=== PATIENT | male | born 1950 | race Caucasian/White ===

== ENCOUNTER 2018-08-27 09:30 | Inpatient (IN) | payer OTHER ==
[~2018-08-27] VITALS: Ht 185.4 cm; Wt 95.8 kg
--- NOTE | 2018-08-27 09:36 | ERD ---
ER Documentation Chief Complaint Chief Complaint HPI This is a 67-year-old male presents for an episode of syncope today while at [facility]. Patient states that he got up, immediately felt dizzy, and had a presyncopal episode. He was conscious after, he did not have any witnessed seizure episode. He has no chest pain or shortness of breath. States in the past he has been diagnosed with a collapsed lung, and "not taking enough breath" and was advised to walk consistently. He has no reported history of arrhythmia or coronary disease. ROS All systems reviewed and are negative except as per history of present illness. Medications Home Meds Reported Medications Risperidone* (Risperidone*) 1 Mg Tablet, 1 MG PO QHS, TAB MAY TAKE AN ADDITIONAL .5 TAB IF IRRITABLE 08/27/18 Tamsulosin Hcl* (Flomax*) 0.4 Mg Cap.er.24h, 0.4 MG PO DAILY, CAP 08/27/18 Ranitidine Hcl* (Ranitidine Hcl*) 300 Mg Tablet, 300 MG PO HS, #30 TAB 08/27/18 Omeprazole* (Omeprazole*) 40 Mg Capsule.dr, 40 MG PO DAILY, #30 CAP 08/27/18 Loratadine* (Claritin*) 10 Mg Tablet, 10 MG PO DAILY, TAB 08/27/18 Simvastatin* (Zocor*) 20 Mg Tablet, 20 MG PO QHS, #30 TAB 08/27/18 Allergies Allergies: Coded Allergies: No Known Allergy (Unverified , 08/27/18) Physical Exam Vitals Vital Signs Date Temp Pulse Resp B/P (MAP) Pulse Ox O2 O2 Flow FiO2 Time Delivery Rate 08/27/18 60 17 130/75 96 Room Air 2.0 12:44 (93) Nasal Cannula 08/27/18 98.6 57 18 118/74 100 09:46 (89) Physical Exam Const: No acute distress Head: Superficial abrasion to forehead, otherwise no ecchymosis, no lace rations, no raccoon eyes, no chung sign Eyes: Normal Conjunctiva ENT: Normal External Ears, Nose and Mouth. Neck: Full range of motion. No meningismus. Resp: Clear to auscultation bilaterally Cardio: Regular rate and rhythm, no murmurs Abd: Soft, non tender, non distended. Normal bowel sounds Skin: No petechiae or rashes Back: No midline or flank tenderness Ext: No cyanosis, or edema Neur: Awake and alert Psych: Normal Mood and Affect Result Diagram: 08/27/18 1015 08/27/18 1015 Results 24 hrs Laboratory Tests Test 08/27/18 10:15 White Blood Count 9.2 10^3/ul Red Blood Count 4.69 10^6/ul Hemoglobin 13.8 g/dl Hematocrit 42.2 % Mean Corpuscular Volume 90.0 fl Mean Corpuscular Hemoglobin 29.4 pg Mean Corpuscular Hemoglobin Concent 32.7 g/dl Red Cell Distribution Width 12.3 % Platelet Count 340 10^3/UL Mean Platelet Volume 9.6 fl Immature Granulocytes % 0.300 % Neutrophils % 71.4 % Lymphocytes % 17.5 % Monocytes % 9.3 % Eosinophils % 0.8 % Basophils % 0.7 % Nucleated Red Blood Cells % 0.0 /100WBC Immature Granulocytes # 0.030 10^3/ul Neutrophils # 6.6 10^3/ul Lymphocytes # 1.6 10^3/ul Monocytes # 0.9 10^3/ul Eosinophils # 0.1 10^3/ul Basophils # 0.1 10^3/ul Nucleated Red Blood Cells # 0.0 10^3/ul Prothrombin Time 12.8 Sec Prothrombin Time Ratio 1.0 INR International Normalized Ratio 0.95 Sodium Level 140 mmol/L Potassium Level 4.0 mmol/L Chloride Level 102 mmol/L Carbon Dioxide Level 28 mmol/L Anion Gap 10 Blood Urea Nitrogen 22 mg/dl Creatinine 1.30 mg/dl Est Glomerular Filtrat Rate mL/min 55 mL/min Glucose Level 109 mg/dl Calcium Level 9.2 mg/dl Total Bilirubin 0.3 mg/dl Direct Bilirubin 0.00 mg/dl Indirect Bilirubin 0.3 mg/dl Aspartate Amino Transf (AST/SGOT) 27 IU/L Alanine Aminotransferase (ALT/SGPT) 14 IU/L Alkaline Phosphatase 86 IU/L Troponin I < 0.012 ng/ml Total Protein 7.1 g/dl Albumin 3.9 g/dl Globulin 3.20 g/dl Albumin/Globulin Ratio 1.21 Current Medications Medications Dose Sig/Lynda Start Time Status Last (Trade) Ordered Route PRN Stop Time Admin Dose Reason Admin Sodium 1,000 ml @ Q1H ONCE 08/27/18 DC 1/20/19 Chloride 1,000 mls/hr IV 11:30 11:52 08/27/18 12:29 Iodixanol 100 ml STK-MED 08/27/18 DC (Visipaque ONCE .ROUTE 11:47 Locm) 08/27/18 11:48 Sodium 100 ml @ ud STK-MED 08/27/18 DC Chloride ONCE .ROUTE 11:47 08/27/18 11:48 Ketorolac 15 mg ONCE STAT 08/27/18 DC 08/27/18 Tromethamine IV 12:15 12:36 (Toradol) 08/27/18 12:16 Procedures/MDM This is a 67-year-old male who presents for evaluation of syncopal episode. He has been overall fatigued, and he has had exertional shortness of breath, additionally had a desat 84% on room air in the ED. His cardiac workup was unremarkable, he had a CT brain which is negative for intracranial findings, he had a CT angiogram to evaluate for pulmonary embolism this was also negative. Emmanuel salazar patient's continued oxygen requirement, will plan for admission to observation. Patient will be admitted to panel team. EKG: Rate/Rhythm: Normal Sinus Rhythm QRS, ST, T-waves: No changes consistent w/ acute ischemia Impression: No evidence of ischemia or arrhythmia Departure Diagnosis: Primary Impression: Syncope Syncope type: unspecified Qualified Codes: R55 - Syncope and collapse Additional Impressions: Head trauma Encounter type: initial encounter Qualified Codes: S09.90XA - Unspecified injury of head, initial encounter Hypoxia Condition: Stable JCARLOS CEDENO MD Aug 27, 2018 09:36
[2018-08-27] MEDS ORDERED: SIMV20TA PO (10:56)
[2018-08-27] MEDS ORDERED: OMEP40CA6 PO (10:57)
[2018-08-27] MEDS ORDERED: LORA-186 PO (10:57)
[2018-08-27] MEDS ORDERED: RANI300T PO (10:57)
[2018-08-27] MEDS ORDERED: TAMS-14 PO (10:58)
[2018-08-27] MEDS ORDERED: RISP1TAB3 PO (11:01)
[2018-08-27] MEDS ORDERED: SOD CHLORIDE 0.9% 1,000 ML IV ONE (11:30)
[2018-08-27] MEDS ORDERED: IODIXANOL LOCM 100 ML BTL ONE (11:47)
[2018-08-27] MEDS ORDERED: SOD CHLORIDE 0.9% 100 ML ONE (11:47)
--- NOTE | 2018-08-27 12:05 | NUR ---
Procedure Ordered: CTA CHEST ANGIO Reason for Exam Today: SOB Previous Exams: Allergies: Current Medications Taken: Glucophage ( ) Metformin ( ) Previous reaction to contrast media: Yes ( ) No ( X) : Yes ( ) No ( )X Asthma: Yes ( ) No ( X) Diabetes: Yes ( ) No ( X) Myeloma: Yes ( ) No (X ) Heart Disease: Yes ( ) No ( X) Cardiac Disease: Yes ( ) No (X ) Kidney Disease: Yes ( ) No (X ) Vascular Disease: Yes ( ) No (X ) Patient Teaching done: Yes (X ) No ( ) Load Tester Used: Yes ( ) No (X ) Name of Load Tester: Language Used: As part of the test requested by your doctor, contrast media may be injected into your vein while the x-rays are being taken. Occasionally, reactions from IV contrast may occur. The physician and staff of this hospital are trained to treat these reactions. Select the type of Contrast that will be given to patient: Omnipaque 300 ( ) Omnipaque 350 ( ) Visipaque 320 ( X) Cystografin ( ) Gastrographin ( ) Redi-cat ( ) Volumen ( ) Amount of contrast to be given: 90CC IV ( X) PO ( ) Date given: 08/27/18 Lab Values: BUN: 22 Creatinine: 1.30 eGFR: 55 ER MD CEDENO OK WITH LABS Reason why contrast cannot be given: Location of patient pre-procedure: ER BED 9 Location of patient post procedure:ER BED 9 Patient tolerated exam well and returned to unit.
[2018-08-27] MEDS ORDERED: KETOROLAC 15 MG INJ IV STA (12:15)
[2018-08-27 17:42] VITALS: PULSE 66
[2018-08-27 18:14] VITALS: Ht 185.4 cm; Wt 95.8 kg
--- NOTE | 2018-08-27 18:43 | NUR ---
RN NOTES: Admitted patient from ER, awake, alert & verbally responsive, not in distress. Admission care rendered. Paged Dr Martin for admitting & said he will be coming to see patient.
[2018-08-27] MEDS ORDERED: ACETAMINOPHEN 325 MG TAB PO PRN (19:30)
[2018-08-27] MEDS ORDERED: NACL 0.9% 3 ML SYG IV SCH (19:30)
[2018-08-27] MEDS ORDERED: HYDROCODONE/APAP (5/325) TAB PO PRN (19:30)
[2018-08-27] MEDS ORDERED: ZOLPIDEM 5 MG TAB PO PRN (19:30)
[2018-08-27] MEDS ORDERED: ALBUTEROL/IPRATROPIUM (NEB) 3 ML AMP HHN PRN (19:30)
[2018-08-27] MEDS ORDERED: morphine 2 MG INJ IV PRN (19:30)
[2018-08-27] MEDS ORDERED: ONDANSETRON 4 MG INJ IV PRN (19:30)
[2018-08-27] MEDS ORDERED: DOCUSATE SODIUM 100 MG CAP PO PRN (19:30)
--- NOTE | 2018-08-27 19:33 | HP ---
Date/Time of Note Date/Time of Note DATE: 08/27/18 TIME: 19:25 Assessment/Plan VTE Prophylaxis SCD applied (from Nsg): Yes Pharmacological prophylaxis: NA/contraindicated Pharm contraindication: other Lines/Catheters IV Catheter Type (from Nrsg): Saline Lock Assessment/Plan Hospital Course 1. Syncope possibly secondary to dehydration Patient does appear clinically dry and creatinine is elevated CT brain is normal, EKG shows sinus rhythm Patient does become mildly bradycardic but blood pressure has been stable Monitor on telemetry 2D echo and carotid ultrasound 2. Acute versus chronic kidney disease Baseline creatinine unknown IV fluids for possible dehydration 3. Acute respiratory distress Etiology unclear CTA is normal, no wheezing noted on exam DuoNeb as needed Supplemental O2 as needed 4. History of psychiatric disorder-likely schizophrenia Continue Risperdal 5. BPH Continue Flomax Prophylaxis: SCDs Result Diagram: 08/27/18 1015 08/27/18 1015 Results 24hrs Laboratory Tests Test 08/27/18 10:15 White Blood Count 9.2 Red Blood Count 4.69 L Hemoglobin 13.8 L Hematocrit 42.2 Mean Corpuscular Volume 90.0 Mean Corpuscular Hemoglobin 29.4 Mean Corpuscular Hemoglobin Concent 32.7 Red Cell Distribution Width 12.3 Platelet Count 340 Mean Platelet Volume 9.6 Immature Granulocytes % 0.300 Neutrophils % 71.4 Lymphocytes % 17.5 Monocytes % 9.3 Eosinophils % 0.8 Basophils % 0.7 Nucleated Red Blood Cells % 0.0 Immature Granulocytes # 0.030 Neutrophils # 6.6 Lymphocytes # 1.6 Monocytes # 0.9 Eosinophils # 0.1 Basophils # 0.1 Nucleated Red Blood Cells # 0.0 Prothrombin Time 12.8 Prothrombin Time Ratio 1.0 INR International Normalized Ratio 0.95 Sodium Level 140 Potassium Level 4.0 Chloride Level 102 Carbon Dioxide Level 28 Anion Gap 10 Blood Urea Nitrogen 22 H Creatinine 1.30 H Est Glomerular Filtrat Rate mL/min 55 L Glucose Level 109 Calcium Level 9.2 Total Bilirubin 0.3 Direct Bilirubin 0.00 Indirect Bilirubin 0.3 Aspartate Amino Transf (AST/SGOT) 27 Alanine Aminotransferase (ALT/SGPT) 14 Alkaline Phosphatase 86 Troponin I < 0.012 Total Protein 7.1 Albumin 3.9 Globulin 3.20 Albumin/Globulin Ratio 1.21 HPI/ROS Admit Date/Time Admit Date/Time Aug 27, 2018 at 14:44 Hx of Present Illness Patient is a 67-year-old male with a history of BPH, psychiatric disorder as well as history of intermittent syncopal episodes. Patient is a poor historian and does not recall any history of cardiac disorder. Patient presents with complaint of shortness of breath as well as syncopal episode earlier today. In the ER patient did desaturate at room air to 84%, CTA in the ER was negative as well as CT head. EKG showed sinus rhythm the patient denied any chest pain. Patient has no other complaints this time. ROS Constitutional: no complaints, improved Eyes: no complaints ENT: no complaints Respiratory: no complaints Cardiovascular: no complaints Gastrointestinal: no complaints Genitourinary: no complaints Musculoskeletal: no complaints Skin: no complaints Neurologic: no complaints Endocrine: no complaints Lymphatic: no complaints Psychological: no complaints, nl mood/affect Immunologic: no complaints PMH/Family/Social Past Medical History As per HPI Coded Allergies: No Known Allergy (Unverified , 08/27/18) Past Surgical History History of hernia surgeries Family History Significant Family History: no pertinent family hx Social History Alcohol Use: sober Smoking Status: Former smoker Drug Use: none Exam/Review of Systems Vital Signs Vitals Vital Signs Date Temp Pulse Resp B/P (MAP) Pulse Ox O2 O2 Flow FiO2 Time Delivery Rate 08/27/18 66 17:42 08/27/18 97.8 12 118/72 99 Nasal 2.0 16:30 (87) Cannula Exam Constitutional: alert, oriented Respiratory: clear to auscultation Cardiovascular: regular rate and rhythm Gastrointestinal: soft; No distended Musculoskeletal: nl extremities to inspection LISA KOROMA Aug 27, 2018 19:33
[2018-08-27 20:00] VITALS: PULSE 67
[2018-08-27] MEDS ORDERED: morphine 4 MG/ML VIAL IV PRN (20:00)
[2018-08-27 20:01] VITALS: BP 135/72; PULSE 52; RESP 20
[2018-08-27] MEDS: ATORVASTATIN 10 MG TAB PO SCH (20:37)
[2018-08-27] MEDS: RISPERIDONE 1 MG TAB PO SCH (20:37)
[2018-08-27] MEDS: RANITIDINE 150 MG TAB PO SCH (20:37)
[2018-08-27] MEDS ORDERED: NON-FORMULARY/PATIENT OWN MED (Simvastatin* (Zocor*) 20 MG) PO SCH (21:00)
[2018-08-27] MEDS: SOD CHLORIDE 0.9% 1,000 ML IV SCH (21:17)
[2018-08-28] VITALS (12 sets, daily range): BP systolic 121–147; BP diastolic 57–70; PULSE 46–80; RESP 20
[2018-08-28] MEDS ORDERED: GLUCOSE GEL 15 GRAM TUBE BUCCAL PRN (00:30)
[2018-08-28] MEDS ORDERED: DEXTROSE 50% 50 ML SYRINGE IV PRN ×2 (00:30)
[2018-08-28] MEDS ORDERED: GLUCOSE GEL 15 GRAM TUBE PO PRN ×2 (00:30)
[2018-08-28] MEDS ORDERED: GLUCAGON 1 MG INJ IM PRN (00:30)
[2018-08-28] MEDS: ACCU-CHEK XX SCH (02:00)
[2018-08-28] MEDS: PANTOPRAZOLE (EC) 40 MG TAB PO SCH (05:17)
[2018-08-28] MEDS: SOD CHLORIDE 0.9% 1,000 ML IV SCH ×2 (06:31→16:27)
--- NOTE | 2018-08-28 06:45 | NUR ---
EOSS Pt alert and oriented x4. Vital signs stable. Saturating well on room air. Sinus beverly on tele with the lowest of 44. Weak and unsteady when standing. Able to transfer to bedside commode with 1 person moderate assist. Pt passed swallow test. Placed on SCD. No complaints of pain/distress. Pt stable. Pt did complain of numbness only on his left arm from elbow down to hands. Pt also complain of headache on the left side of forhead where he had the abrasion from fall, pt given PRN morphine and ice pack. Fall precautions implemented. Hourly rounding done. Needs attended. Will endorse to AM shift.
[2018-08-28] MEDS: INSULIN ASPART [NOVOLOG] 3 ML PEN SC SCH ×4 (07:55→20:26)
[2018-08-28] MEDS: LORATADINE 10 MG TAB PO SCH (08:49)
[2018-08-28] MEDS: TAMSULOSIN (SR) 0.4 MG CAP PO SCH (08:49)
--- NOTE | 2018-08-28 10:00 | NUR ---
PT evaluation note: S: HPI This is a 67-year-old male presents for an episode of syncope today while at [employer]. Patient states that he got up, immediately felt dizzy, and had a presyncopal episode. He was conscious after, he did not have any witnessed seizure episode. He has no chest pain or shortness of breath. States in the past he has been diagnosed with a collapsed lung, and "not taking enough breath" and was advised to walk consistently. He has no reported history of arrhythmia or coronary disease. O: MD order received for PT consult. Patient agreeable to participate, c/o light headedness and some headache from neck, R side of face and around forehead, ice packs is helping to ease the pain per pt. C/O generalized weakness. PREC: fall prec. PLOF: Patient lives with family in single story house, 3 consecutive steps to the front door, has safety rail. Patient was independent with ADL and ambulatory without AD, pt doesn't own any DME. Family members can assist as needed. CLOF Patient CGA with bed mobility for balance and to lift legs, CGA for safety due to light headedness on transfers and ambulation using FWW, tolerated about 15 feet distance with steady legs but at slow paced. A: Cleared to ambulate with nursing to go restroom using FWW and with assist for balance and safety, JOYCE Bush made aware. Patient can benefit from HHPT and FWW for home use VERSUS no further therapy needed upon DC if goals met prior to DC home - pending progress P: COnt PT and progress as able.
--- NOTE | 2018-08-28 18:03 | PN ---
Date/Time of Note Date/Time of Note DATE: 08/28/18 TIME: 17:58 Assessment/Plan VTE Prophylaxis Risk score (from Ns)>0 risk: 4 SCD applied (from Ns): Yes Pharmacological prophylaxis: NA/contraindicated Pharm contraindication: low risk/ambulating Lines/Catheters IV Catheter Type (from Nrs): Peripheral IV Assessment/Plan Assessment/Plan 1. Syncope possibly secondary to dehydration Patient does appear clinically dry and creatinine is elevated CT brain is normal, EKG shows sinus rhythm Patient does become mildly bradycardic but blood pressure has been stable Monitor on telemetry 2D echo and carotid ultrasound normal. 2. CARL resolved 3. Angina Reports angina with mild-moderate activity at home, resolves with rest Initial troponin negative Patient is due for hernia surgery this Tuesday. Will plan for stress test before discharge. 4. History of psychiatric disorder-likely schizophrenia Continue Risperdal 5. BPH Continue Flomax Prophylaxis: SCDs Result Diagram: 08/28/18 0608 08/28/18 0608 Results 24hrs Laboratory Tests Test 08/27/18 20:33 08/28/18 06:08 08/28/18 07:58 08/28/18 12:15 Bedside Glucose 90 86 105 White Blood Count 6.8 # Red Blood Count 4.37 L Hemoglobin 13.1 L Hematocrit 39.7 L Mean Corpuscular 90.8 Volume Mean Corpuscular 30.0 Hemoglobin Mean Corpuscular 33.0 Hemoglobin Concent Red Cell 12.4 Distribution Width Platelet Count 304 Mean Platelet Volume 9.7 Immature 0.100 Granulocytes % Neutrophils % 57.6 Lymphocytes % 25.6 Monocytes % 12.3 H Eosinophils % 3.7 Basophils % 0.7 Nucleated Red Blood 0.0 Cells % Immature 0.010 Granulocytes # Neutrophils # 3.9 Lymphocytes # 1.7 Monocytes # 0.8 Eosinophils # 0.3 Basophils # 0.1 Nucleated Red Blood 0.0 Cells # Sodium Level 136 Potassium Level 3.9 Chloride Level 101 Carbon Dioxide Level 28 Anion Gap 7 Blood Urea Nitrogen 20 Creatinine 1.10 Est Glomerular > 60 Filtrat Rate mL/min Glucose Level 95 Hemoglobin A1c 5.7 Calcium Level 8.7 Phosphorus Level 4.3 Magnesium Level 1.9 Free Thyroxine Index 2.92 Thyroxine (T4) 8.3 Triiodothyronine 35.2 (T3) Uptake Test 08/28/18 17:33 Bedside Glucose 139 Subjective 24 Hr Interval Summary Free Text/Dictation No acute overnight events. Patient reports profound fatigue since admission which has not resolved. Also reports having a few episodes of pressure-like substernal chest pain which started several months ago, last experienced about a week ago when he was moving furniture. Chest pressure persisted for a few moments at rest before gradually resolving. Exam/Review of Systems Vital Signs Vitals Vital Signs Date Temp Pulse Resp B/P (MAP) Pulse Ox O2 O2 Flow FiO2 Time Delivery Rate 08/28/18 46 16:00 08/28/18 98.0 20 131/63 97 15:37 (85) 08/27/18 Nasal 2.0 16:30 Cannula Intake and Output 08/27/18 08/27/18 08/28/18 1515:00 23:00 07:00 IntakeIntake Total 1000 ml 1692 ml OutputOutput Total 800 ml BalanceBalance 1000 ml 892 ml Exam Gen: Frail appearing elderly man in no acute distress. Eyes: PERRL, no icterus HEENT: Clear oropharynx, moist mucous membranes Neck: No JVD. Card: Regular rate and rhythm, no murmurs. Chest: No chest wall tenderness. Pulm: Clear to auscultation bilaterally Abd: Soft, nontender, nondistended. : L sided inguinal hernia, tender but reducible. Ext: No cyanosis/clubbing/edema. Medications Medications Current Medications Sodium Chloride 1,000 ml @ 100 mls/hr Q10H IV Last administered on 08/28/18at 16:27; Admin Dose 100 MLS/HR; Start 08/27/18 at 19:25 IV Flush (NS 3 ml) 3 ml PER PROTOCOL IV ; Start 08/27/18 at 19:30 Ondansetron HCl (Zofran Inj) 4 mg Q6H PRN IV NAUSEA AND/OR VOMITING; Start 08/27/18 at 19:30 Acetaminophen (Tylenol Tab) 650 mg Q6H PRN PO PAIN LEVEL 1-3 OR FEVER; Start 08/27/18 at 19:30 Acetaminophen/ Hydrocodone Bitart ([place] (5/325)) 1 tab Q6H PRN PO MODERATE PAIN LEVEL 4-6 Last administered on 08/28/18at 14:16; Admin Dose 1 TAB; Start 08/27/18 at 19:30 Docusate Sodium (Colace) 100 mg Q12H PRN PO CONSTIPATION; Start 08/27/18 at 19:30 Zolpidem Tartrate (Ambien) 5 mg QHS PRN PO SLEEP; Start 08/27/18 at 19:30 Albuterol/ Ipratropium (Duoneb) 3 ml Q4H RESP THERAPY PRN HHN SHORTNESS OF BREATH; Start 08/27/18 at 19:30 Loratadine (Claritin) 10 mg DAILY PO Last administered on 08/28/18at 08:49; Admin Dose 10 MG; Start 08/28/18 at 09:00 Ranitidine HCl (Zantac) 300 mg HS PO Last administered on 08/27/18at 20:37; Admin Dose 300 MG; Start 08/27/18 at 21:00 Risperidone (Risperdal) 1 mg QHS PO Last administered on 08/27/18at 20:37; Admin Dose 1 MG; Start 08/27/18 at 21:00 Tamsulosin HCl (Flomax) 0.4 mg DAILY PO Last administered on 08/28/18at 08:49; Admin Dose 0.4 MG; Start 08/28/18 at 09:00 Pantoprazole (Protonix Tab) 40 mg DAILY@06 PO Last administered on 08/28/18at 05:17; Admin Dose 40 MG; Start 08/28/18 at 06:00 Morphine Sulfate (morphine) 2 mg Q4H PRN IV SEVERE PAIN LEVEL 7-10 Last a dministered on 08/28/18at 05:17; Admin Dose 2 MG; Start 08/27/18 at 20:00 Atorvastatin Calcium (Lipitor) 10 mg QHS PO Last administered on 08/27/18at 20:37; Admin Dose 10 MG; Start 08/27/18 at 21:00 Diagnostic Test (Pha) (Accu-Chek) 1 ea 02 XX ; Start 08/28/18 at 02:00 Insulin Aspart (Novolog Insulin Pen) NOVOLOG *MILD* ALGORITHM WITH MEALS BEDTIME SC ; Start 08/28/18 at 07:55 Miscellaneous Information 1 ea NOTE XX ; Start 08/28/18 at 00:30 Glucose (Glutose) 15 gm Q15M PRN PO DECREASED GLUCOSE; Start 08/28/18 at 00:30 Glucose (Glutose) 22.5 gm Q15M PRN PO DECREASED GLUCOSE; Start 08/28/18 at 00:30 Dextrose (D50w Syringe) 25 ml Q15M PRN IV DECREASED GLUCOSE; Start 08/28/18 at 00:30 Dextrose (D50w Syringe) 50 ml Q15M PRN IV DECREASED GLUCOSE; Start 08/28/18 at 00:30 Glucagon (Glucagen) 1 mg Q15M PRN IM DECREASED GLUCOSE; Start 08/28/18 at 00:30 Glucose (Glutose) 15 gm Q15M PRN BUCCAL DECREASED GLUCOSE; Start 08/28/18 at 00:30 DIDI GIL MD Aug 28, 2018 18:03
[2018-08-28] MEDS: RANITIDINE 150 MG TAB PO SCH (20:25)
[2018-08-28] MEDS: RISPERIDONE 1 MG TAB PO SCH (20:25)
[2018-08-28] MEDS: ATORVASTATIN 10 MG TAB PO SCH (20:25)
[2018-08-29] VITALS (12 sets, daily range): BP systolic 120–137; BP diastolic 58–82; PULSE 45–67; RESP 18–20
[2018-08-29] MEDS: SOD CHLORIDE 0.9% 1,000 ML IV SCH ×2 (01:25→08:21)
[2018-08-29] MEDS: ACCU-CHEK XX SCH (02:00)
[2018-08-29] MEDS: PANTOPRAZOLE (EC) 40 MG TAB PO SCH (06:04)
--- NOTE | 2018-08-29 07:27 | NUR ---
PT REMAINS A/OX4 THROUGHOUT THE SHIFT. STILL WITH OCCASIONAL SLURRING OF SPEECH NOTED. PT IS ABLE TO WALK TO THE RESTROOM USING WALKER. HR REMAINS LOW. ALL OTHER VS REMAINS STABLE. KEPT NPO POST MIDNIGHT. WILL ENDORSE TO AM SHIFT FOR CONTINUITY OF CARE
[2018-08-29] MEDS: INSULIN ASPART [NOVOLOG] 3 ML PEN SC SCH ×4 (07:55→20:59)
[2018-08-29] MEDS: LORATADINE 10 MG TAB PO SCH (08:18)
[2018-08-29] MEDS: TAMSULOSIN (SR) 0.4 MG CAP PO SCH (08:18)
--- NOTE | 2018-08-29 08:31 | CONS ---
Date/Time of Note Date/Time of Note DATE: 08/29/18 TIME: 08:26 Assessment/Plan Assessment/Plan Assessment/Plan Preop cardiac evalution Right inuinal hernia Syncope s/p CARL Psych disorder BPH -Will undergo cardiolyte today before surgery tomorrow -No heart block with sinus beverly -Normal EF by echocardiogram -IVF Result Diagram: 08/29/18 0549 08/29/18 0549 Results 24hrs Laboratory Tests Test 08/28/18 12:15 08/28/18 17:33 08/28/18 20:07 08/28/18 20:23 Bedside Glucose 105 139 114 Creatine Kinase 79 Creatine Kinase 2.0 Index Creatinine Kinase MB 1.56 (Mass) Troponin I < 0.012 Test 08/29/18 05:49 08/29/18 08:09 White Blood Count 7.1 Red Blood Count 4.58 L Hemoglobin 13.6 L Hematocrit 41.7 L Mean Corpuscular 91.0 Volume Mean Corpuscular 29.7 Hemoglobin Mean Corpuscular 32.6 Hemoglobin Concent Red Cell 12.2 Distribution Width Platelet Count 322 Mean Platelet Volume 9.9 Immature 0.300 Granulocytes % Neutrophils % 51.0 Lymphocytes % 32.7 Monocytes % 11.3 H Eosinophils % 3.7 Basophils % 1.0 Nucleated Red Blood 0.0 Cells % Immature 0.020 Granulocytes # Neutrophils # 3.6 Lymphocytes # 2.3 Monocytes # 0.8 Eosinophils # 0.3 Basophils # 0.1 Nucleated Red Blood 0.0 Cells # Sodium Level 138 Potassium Level 3.9 Chloride Level 102 Carbon Dioxide Level 31 Anion Gap 5 Blood Urea Nitrogen 19 Creatinine 1.16 Est Glomerular > 60 Filtrat Rate mL/min Glucose Level 94 Calcium Level 8.7 Phosphorus Level 4.1 Magnesium Level 1.9 Bedside Glucose 91 Consultation Date/Type/Reason Admit Date/Time Aug 27, 2018 at 14:44 Hx of Present Illness Patient is a 67-year-old male with a history of BPH, psychiatric disorder as well as history of intermittent syncopal episodes. Patient is a poor historian and does not recall any history of cardiac disorder. Patient presents with complaint of shortness of breath as well as syncopal episode earlier today. In the ER patient did desaturate at room air to 84%, CTA in the ER was negative as well as CT head. EKG showed sinus rhythm the patient denied any chest pain. Patient has no other complaints this time. He has no cardiac history with atypical chest pain that is nonexertional and no asosicated symptoms, sinus beverly but no heart block Past Medical History Medications Current Medications Sodium Chloride 1,000 ml @ 100 mls/hr Q10H IV Last administered on 08/29/18at 08:21; Admin Dose 100 MLS/HR; Start 08/27/18 at 19:25 IV Flush (NS 3 ml) 3 ml PER PROTOCOL IV ; Start 08/27/18 at 19:30 Ondansetron HCl (Zofran Inj) 4 mg Q6H PRN IV NAUSEA AND/OR VOMITING; Start 08/27/18 at 19:30 Acetaminophen (Tylenol Tab) 650 mg Q6H PRN PO PAIN LEVEL 1-3 OR FEVER; Start 08/27/18 at 19:30 Acetaminophen/ Hydrocodone Bitart (Bly (5/325)) 1 tab Q6H PRN PO MODERATE PAIN LEVEL 4-6 Last administered on 08/28/18at 14:16; Admin Dose 1 TAB; Start 08/27/18 at 19:30 Docusate Sodium (Colace) 100 mg Q12H PRN PO CONSTIPATION; Start 08/27/18 at 19:30 Zolpidem Tartrate (Ambien) 5 mg QHS PRN PO SLEEP; Start 08/27/18 at 19:30 Albuterol/ Ipratropium (Duoneb) 3 ml Q4H RESP THERAPY PRN HHN SHORTNESS OF BREATH; Start 08/27/18 at 19:30 Loratadine (Claritin) 10 mg DAILY PO Last administered on 08/29/18at 08:18; Admin Dose 10 MG; Start 08/28/18 at 09:00 Ranitidine HCl (Zantac) 300 mg HS PO Last administered on 08/28/18at 20:25; Admin Dose 300 MG; Start 08/27/18 at 21:00 Risperidone (Risperdal) 1 mg QHS PO Last administered on 08/28/18at 20:25; Admin Dose 1 MG; Start 08/27/18 at 21:00 Tamsulosin HCl (Flomax) 0.4 mg DAILY PO Last administered on 08/29/18at 08:18; Admin Dose 0.4 MG; Start 08/28/18 at 09:00 Pantoprazole (Protonix Tab) 40 mg DAILY@06 PO Last administered on 08/29/18at 06:04; Admin Dose 40 MG; Start 08/28/18 at 06:00 Morphine Sulfate (morphine) 2 mg Q4H PRN IV SEVERE PAIN LEVEL 7-10 Last administered on 08/28/18at 05:17; Admin Dose 2 MG; Start 08/27/18 at 20:00 Atorvastatin Calcium (Lipitor) 10 mg QHS PO Last administered on 08/28/18at 20:25; Admin Dose 10 MG; Start 08/27/18 at 21:00 Diagnostic Test (Pha) (Accu-Chek) 1 ea 02 XX ; Start 08/28/18 at 02:00 Insulin Aspart (Novolog Insulin Pen) NOVOLOG *MILD* ALGORITHM WITH MEALS BEDTIME SC ; Start 08/28/18 at 07:55 Miscellaneous Information 1 ea NOTE XX ; Start 08/28/18 at 00:30 Glucose (Glutose) 15 gm Q15M PRN PO DECREASED GLUCOSE; Start 08/28/18 at 00:30 Glucose (Glutose) 22.5 gm Q15M PRN PO DECREASED GLUCOSE; Start 08/28/18 at 00:30 Dextrose (D50w Syringe) 25 ml Q15M PRN IV DECREASED GLUCOSE; Start 08/28/18 at 00:30 Dextrose (D50w Syringe) 50 ml Q15M PRN IV DECREASED GLUCOSE; Start 08/28/18 at 00:30 Glucagon (Glucagen) 1 mg Q15M PRN IM DECREASED GLUCOSE; Start 08/28/18 at 00:30 Glucose (Glutose) 15 gm Q15M PRN BUCCAL DECREASED GLUCOSE; Start 08/28/18 at 00:30 Allergies: Coded Allergies: No Known Allergy (Unverified , 08/27/18) Social History Alcohol Use: sober Smoking Status: Former smoker Drug Use: none Exam/Review of Systems Vital Signs Vitals Vital Signs Date Temp Pulse Resp B/P (MAP) Pulse Ox O2 O2 Flow FiO2 Time Delivery Rate 08/29/18 45 08:25 08/29/18 97.5 20 132/63 95 07:25 (86) 08/27/18 Nasal 2.0 16:30 Cannula Intake and Output 08/28/18 08/28/18 08/29/18 1515:00 23:00 07:00 IntakeIntake Total 780 ml OutputOutput Total 1040 ml 1250 ml BalanceBalance -1040 ml -470 ml Medications Medications Current Medications Sodium Chloride 1,000 ml @ 100 mls/hr Q10H IV Last administered on 08/29/18at 08:21; Admin Dose 100 MLS/HR; Start 08/27/18 at 19:25 IV Flush (NS 3 ml) 3 ml PER PROTOCOL IV ; Start 08/27/18 at 19:30 Ondansetron HCl (Zofran Inj) 4 mg Q6H PRN IV NAUSEA AND/OR VOMITING; Start 08/27/18 at 19:30 Acetaminophen (Tylenol Tab) 650 mg Q6H PRN PO PAIN LEVEL 1-3 OR FEVER; Start 08/27/18 at 19:30 Acetaminophen/ Hydrocodone Bitart (Bly (5/325)) 1 tab Q6H PRN PO MODERATE PAIN LEVEL 4-6 Last administered on 08/28/18at 14:16; Admin Dose 1 TAB; Start 08/27/18 at 19:30 Docusate Sodium (Colace) 100 mg Q12H PRN PO CONSTIPATION; Start 08/27/18 at 19:30 Zolpidem Tartrate (Ambien) 5 mg QHS PRN PO SLEEP; Start 08/27/18 at 19:30 Albuterol/ Ipratropium (Duoneb) 3 ml Q4H RESP THERAPY PRN HHN SHORTNESS OF BREATH; Start 08/27/18 at 19:30 Loratadine (Claritin) 10 mg DAILY PO Last administered on 08/29/18at 08:18; Admin Dose 10 MG; Start 08/28/18 at 09:00 Ranitidine HCl (Zantac) 300 mg HS PO Last administered on 08/28/18at 20:25; Admin Dose 300 MG; Start 08/27/18 at 21:00 Risperidone (Risperdal) 1 mg QHS PO Last administered on 08/28/18at 20:25; Admin Dose 1 MG; Start 08/27/18 at 21:00 Tamsulosin HCl (Flomax) 0.4 mg DAILY PO Last administered on 08/29/18at 08:18; Admin Dose 0.4 MG; Start 08/28/18 at 09:00 Pantoprazole (Protonix Tab) 40 mg DAILY@06 PO Last administered on 08/29/18at 06:04; Admin Dose 40 MG; Start 08/28/18 at 06:00 Morphine Sulfate (morphine) 2 mg Q4H PRN IV SEVERE PAIN LEVEL 7-10 Last administered on 08/28/18at 05:17; Admin Dose 2 MG; Start 08/27/18 at 20:00 Atorvastatin Calcium (Lipitor) 10 mg QHS PO Last administered on 08/28/18at 20:25; Admin Dose 10 MG; Start 08/27/18 at 21:00 Diagnostic Test (Pha) (Accu-Chek) 1 ea 02 XX ; Start 08/28/18 at 02:00 Insulin Aspart (Novolog Insulin Pen) NOVOLOG *MILD* ALGORITHM WITH MEALS BEDTIME SC ; Start 08/28/18 at 07:55 Miscellaneous Information 1 ea NOTE XX ; Start 08/28/18 at 00:30 Glucose (Glutose) 15 gm Q15M PRN PO DECREASED GLUCOSE; Start 08/28/18 at 00:30 Glucose (Glutose) 22.5 gm Q15M PRN PO DECREASED GLUCOSE; Start 08/28/18 at 00:30 Dextrose (D50w Syringe) 25 ml Q15M PRN IV DECREASED GLUCOSE; Start 08/28/18 at 00:30 Dextrose (D50w Syringe) 50 ml Q15M PRN IV DECREASED GLUCOSE; Start 08/28/18 at 00:30 Glucagon (Glucagen) 1 mg Q15M PRN IM DECREASED GLUCOSE; Start 08/28/18 at 00:30 Glucose (Glutose) 15 gm Q15M PRN BUCCAL DECREASED GLUCOSE; Start 08/28/18 at 00:30 DOROTA HARRIS MD Aug 29, 2018 08:31
[2018-08-29] MEDS ORDERED: REGADENOSON 0.4 MG/5 ML SYG ONE (13:20)
--- NOTE | 2018-08-29 13:57 | NUR ---
PT NOTE [facility] Patient: Eddi Rubalcava : 1950 Age/Sex: 67/M Unit#: [id number] Room/Bed: 514/A User: [place] PTA Date: 08/29/18 13:57 Type: PT Technical Record Therapy day number 2 PT Technical Record Comment PT NOTE Pt JOSSIE for stress test. Will return later in PM if time permitted.
--- NOTE | 2018-08-29 16:24 | PN ---
Date/Time of Note Date/Time of Note DATE: 08/29/18 TIME: 16:20 Assessment/Plan VTE Prophylaxis Risk score (from Ns)>0 risk: 3 SCD applied (from [facility]): Yes Pharmacological prophylaxis: NA/contraindicated Pharm contraindication: low risk/ambulating Lines/Catheters IV Catheter Type (from [facility]): Peripheral IV Assessment/Plan Assessment/Plan 1. Syncope possibly secondary to dehydration Patient does appear clinically dry and creatinine is elevated CT brain is normal, EKG shows sinus rhythm Patient does become mildly bradycardic but blood pressure has been stable Monitor on telemetry 2D echo and carotid ultrasound normal. 2. CARL resolved 3. Angina Reports angina with mild-moderate activity at home, resolves with rest Initial troponin negative Patient is due for hernia surgery this Tuesday. Will plan for stress test before discharge. 4. History of psychiatric disorder-likely schizophrenia Continue Risperdal 5. BPH Continue Flomax Prophylaxis: SCDs Dispo: Got stress test today; if negative will discharge. Result Diagram: 08/29/18 0549 08/29/18 0549 Results 24hrs Laboratory Tests Test 08/28/18 17:33 08/28/18 20:07 08/28/18 20:23 08/29/18 05:49 Bedside Glucose 139 114 Creatine Kinase 79 Creatine Kinase 2.0 Index Creatinine Kinase MB 1.56 (Mass) Troponin I < 0.012 White Blood Count 7.1 Red Blood Count 4.58 L Hemoglobin 13.6 L Hematocrit 41.7 L Mean Corpuscular 91.0 Volume Mean Corpuscular 29.7 Hemoglobin Mean Corpuscular 32.6 Hemoglobin Concent Red Cell 12.2 Distribution Width Platelet Count 322 Mean Platelet Volume 9.9 Immature 0.300 Granulocytes % Neutrophils % 51.0 Lymphocytes % 32.7 Monocytes % 11.3 H Eosinophils % 3.7 Basophils % 1.0 Nucleated Red Blood 0.0 Cells % Immature 0.020 Granulocytes # Neutrophils # 3.6 Lymphocytes # 2.3 Monocytes # 0.8 Eosinophils # 0.3 Basophils # 0.1 Nucleated Red Blood 0.0 Cells # Sodium Level 138 Potassium Level 3.9 Chloride Level 102 Carbon Dioxide Level 31 Anion Gap 5 Blood Urea Nitrogen 19 Creatinine 1.16 Est Glomerular > 60 Filtrat Rate mL/min Glucose Level 94 Calcium Level 8.7 Phosphorus Level 4.1 Magnesium Level 1.9 Test 08/29/18 08:09 1/22/19 11:53 Bedside Glucose 91 91 Subjective 24 Hr Interval Summary Free Text/Dictation No acute overnight events. Patient complains of whole body aching. He didn't get the flu shot this year. Exam/Review of Systems Vital Signs Vitals Vital Signs Date Temp Pulse Resp B/P (MAP) Pulse Ox O2 O2 Flow FiO2 Time Delivery Rate 08/29/18 98.0 57 20 120/70 97 15:40 (87) 08/27/18 Nasal 2.0 16:30 Cannula Intake and Output 08/28/18 08/28/18 08/29/18 1515:00 23:00 07:00 IntakeIntake Total 780 ml OutputOutput Total 1040 ml 1250 ml BalanceBalance -1040 ml -470 ml Exam Gen: Frail appearing elderly man in no acute distress. Eyes: PERRL, no icterus HEENT: Clear oropharynx, moist mucous membranes Neck: No JVD. Card: Regular rate and rhythm, no murmurs. Chest: No chest wall tenderness. Pulm: Clear to auscultation bilaterally Abd: Soft, nontender, nondistended. : L sided inguinal hernia, tender but reducible. Ext: No cyanosis/clubbing/edema. Medications Medications Current Medications Sodium Chloride 1,000 ml @ 100 mls/hr Q10H IV Last administered on 08/29/18at 08:21; Admin Dose 100 MLS/HR; Start 08/27/18 at 19:25 IV Flush (NS 3 ml) 3 ml PER PROTOCOL IV ; Start 08/27/18 at 19:30 Ondansetron HCl (Zofran Inj) 4 mg Q6H PRN IV NAUSEA AND/OR VOMITING; Start 08/27/18 at 19:30 Acetaminophen (Tylenol Tab) 650 mg Q6H PRN PO PAIN LEVEL 1-3 OR FEVER; Start 08/27/18 at 19:30 Acetaminophen/ Hydrocodone Bitart ([place] (5/325)) 1 tab Q6H PRN PO MODERATE PAIN LEVEL 4-6 Last administered on 08/28/18at 14:16; Admin Dose 1 TAB; Start 08/27/18 at 19:30 Docusate Sodium (Colace) 100 mg Q12H PRN PO CONSTIPATION; Start 08/27/18 at 19:30 Zolpidem Tartrate (Ambien) 5 mg QHS PRN PO SLEEP; Start 08/27/18 at 19:30 Albuterol/ Ipratropium (Duoneb) 3 ml Q4H RESP THERAPY PRN HHN SHORTNESS OF BREATH; Start 08/27/18 at 19:30 Loratadine (Claritin) 10 mg DAILY PO Last administered on 08/29/18at 08:18; Admin Dose 10 MG; Start 08/28/18 at 09:00 Ranitidine HCl (Zantac) 300 mg HS PO Last administered on 08/28/18at 20:25; Admin Dose 300 MG; Start 08/27/18 at 21:00 Risperidone (Risperdal) 1 mg QHS PO Last administered on 08/28/18at 20:25; Admin Dose 1 MG; Start 08/27/18 at 21:00 Tamsulosin HCl (Flomax) 0.4 mg DAILY PO Last administered on 08/29/18at 08:18; Admin Dose 0.4 MG; Start 08/28/18 at 09:00 Pantoprazole (Protonix Tab) 40 mg DAILY@06 PO Last administered on 08/29/18at 06:04; Admin Dose 40 MG; Start 08/28/18 at 06:00 Morphine Sulfate (morphine) 2 mg Q4H PRN IV SEVERE PAIN LEVEL 7-10 Last administered on 08/28/18at 05:17; Admin Dose 2 MG; Start 08/27/18 at 20:00 Atorvastatin Calcium (Lipitor) 10 mg QHS PO Last administered on 08/28/18at 20:25; Admin Dose 10 MG; Start 08/27/18 at 21:00 Diagnostic Test (Pha) (Accu-Chek) 1 ea 02 XX ; Start 08/28/18 at 02:00 Insulin Aspart (Novolog Insulin Pen) NOVOLOG *MILD* ALGORITHM WITH MEALS BEDTIME SC ; Start 08/28/18 at 07:55 Miscellaneous Information 1 ea NOTE XX ; Start 08/28/18 at 00:30 Glucose (Glutose) 15 gm Q15M PRN PO DECREASED GLUCOSE; Start 08/28/18 at 00:30 Glucose (Glutose) 22.5 gm Q15M PRN PO DECREASED GLUCOSE; Start 08/28/18 at 00:30 Dextrose (D50w Syringe) 25 ml Q15M PRN IV DECREASED GLUCOSE; Start 08/28/18 at 00:30 Dextrose (D50w Syringe) 50 ml Q15M PRN IV DECREASED GLUCOSE; Start 08/28/18 at 00:30 Glucagon (Glucagen) 1 mg Q15M PRN IM DECREASED GLUCOSE; Start 08/28/18 at 00:30 Glucose (Glutose) 15 gm Q15M PRN BUCCAL DECREASED GLUCOSE; Start 08/28/18 at 00:30 DIDI GIL MD Aug 29, 2018 16:24
--- NOTE | 2018-08-29 17:31 | SP ---
DATE OF PROCEDURE: 08/29/2018 SUPERVISING PHYSICIAN: Roland Richmond MD CLINICAL INDICATION: Chest pain. PROCEDURE IN DETAILS: The patient was attached to continuous EKG and blood pressure monitoring. Sub sequently, 0.4 mg of Lexiscan was injected. This was followed by SPECT nuclear imaging. CLINICAL INFORMATION: His resting heart rate is 75, peak heart rate is 74, resting blood pressure is 122/80. Peak blood pressure is 132/70. CLINICAL SYMPTOMS: None. RESTING ELECTROCARDIOGRAM: Sinus rhythm, no significant abnormality. STRESS ELECTROCARDIOGRAM: No significant abnormalities. SUMMARY: Clinical nonischemic electrocardiogram nonischemic. This will be followed by SPECT nuclear imaging. Dictated By: ROLAND RICHMOND MD LK/NTS Conf#: [id number] DID#: [id number] CC: LISA KOROMA MD; DIDI GIL MD; BHAVESH JAY DO;*End*
--- NOTE | 2018-08-29 18:31 | NUR ---
EOSS Pt is alert and oriented x 3 , denies chest pain or shortness of breath at this time. Nuc Lab completed , SB on the monitor . with IVF maintenance . OOB to commode with assistance. Continue to monitor pt.
[2018-08-29] MEDS: RANITIDINE 150 MG TAB PO SCH (20:59)
[2018-08-29] MEDS: ATORVASTATIN 10 MG TAB PO SCH (20:59)
[2018-08-29] MEDS: RISPERIDONE 1 MG TAB PO SCH (20:59)
[2018-08-30] VITALS (9 sets, daily range): BP systolic 132–154; BP diastolic 64–75; PULSE 48–74; RESP 16–20
[2018-08-30] MEDS: SOD CHLORIDE 0.9% 1,000 ML IV SCH ×3 (01:10→17:25)
[2018-08-30] MEDS: ACCU-CHEK XX SCH (02:00)
[2018-08-30] MEDS: PANTOPRAZOLE (EC) 40 MG TAB PO SCH (05:29)
--- NOTE | 2018-08-30 07:21 | NUR ---
NO SIGNIFICANT CHANGES. PT REMAINS STABLE. ALL NEEDS ATTENDED. WILL ENDORSE TO AM SHIFT FOR CONTINUITY OF CARE
[2018-08-30] MEDS: INSULIN ASPART [NOVOLOG] 3 ML PEN SC SCH ×3 (07:55→17:51)
[2018-08-30] MEDS: TAMSULOSIN (SR) 0.4 MG CAP PO SCH (08:31)
[2018-08-30] MEDS: LORATADINE 10 MG TAB PO SCH (08:31)
--- NOTE | 2018-08-30 10:32 | PDOCDIS ---
Discharge Instructions DIAGNOSIS Discharge Diagnosis Vasovagal syncope CONDITION [id number] Patient Condition: [id number] Good HOME CARE INSTRUCTIONS: [id number] Diet Instructions: [id number] Regular ACTIVITY: [id number] Activity Restrictions: [id number] Slowly Increase Activity FOLLOW UP/APPOINTMENTS Follow-up Plan 1. Avoid strenuous activity until you feel ready. 2. Take all medications as prescribed. 3. See your primary care doctor in 1-2 weeks. 4. Return to the emergency room if you develop pressure-like chest pain with activity that does not stop with rest. DIDI GIL MD Aug 30, 2018 10:32
--- NOTE | 2018-08-30 10:47 | NUR ---
PT NOTE Therapy day number 3 Subjective Denies pain Pain Scale NUMERIC Pain Intensity 0 (0-10) Patient Stated Goal for Pain Relief 0 (0-10) Pain Level Comment DENIES PAIN Transfer Training Start Time 10:47 Supine to Sit Supervised Transfer Sit to Stand Ability Stand by Assist Bed Mobility Sit to Supine Supervised Additional Mobility Comments Transfers w/AD Transfer Training End Time 11:00 Total Transfer Training Time 13 min (8-127) Patient uses wheelchair Not Applicable Gait Training Start Time 11:00 Gait Assist Levels Supervised Assistive Devices Front Wheel Walker Ambulation Distance 220 feet Additional Gait Comments steady pace/gait, reciprocal gait, no LOB/buckling, mild flex posture Gait Training End Time 11:26 Total Gait Training Treatment Time 26 min (8-127) Static Sitting Balance Good Dynamic Sitting Balance Fair plus Standing Static Balance Good Dynamic Standing Balance Fair plus Additional Balance Assessments Comments FWW Safety Judgement Fair Activity Tolerance Good Equipment Present A pump IV pump Post Treatment Pain Intensity 0 0-10 Quality Indicators Light headedness Variance Documentation SEE BELOW AND PT NOTE Total Treament Time 39 min (8-127) Total Minutes 39 Total Units 3 PT Technical Record Comment PT NOTE S: Pt stated, "I feel slightly lightheaded, but no dizziness." Agreeable for PT and cleared per RN. O: Received pt in semi-fowlers, alert. Bed mobility Supervised. Applied gait belt at EOB. STS to FWW SBA/Supervised. Gait training performed w/FWW 220' Supervised. Noted steady pace/gait, reciprocal gait, no LOB/buckling, mild flex posture, and head/vision downward. Pt required Min VCs to maintain distance from AD and to lift head/vision upward. Pt verbalized and demonstrated w/fair return. Stair training performed 4 steps x 1 using 1 rail w/BUE step to pattern w/VCs for sequence, fair demonstration Supervised. Assisted pt back to room BTB. Positioned pt for comfort, call light/phone within reach, bed alarmed, SCD's reapplied, and all needs met. RN informed of pt's status. A: Good tolerance to tx. Pt showed no signs of distress or SOB during or after tx. No c/o pain, nausea, or dizziness throughout tx. Bed mobility, transfers, and gait assistance/distance improved compared to previous tx. Pt is clear to ambulate w/nursing staff in hallway w/FWW and gait belt for safety. P: Continue POC and progress as tolerated.
--- NOTE | 2018-08-30 11:15 | NUR ---
Patient's Anna contacted to notify her that patient is being discharged home today. Notified her that patient is requesting shoes, socks and a jacket. Per she will be here around 1500. Clinical Linux Consultant, Rasheed mccann. Addendum: 08/30/18 at 1539 by TERRANCE RENAE RN Contacted to determine whether she is on her way to pickup patient, and per she will be here at 1700.
--- NOTE | 2018-08-30 12:46 | CONS ---
Assessment/Plan Assessment/Plan Assessment/Plan Preop cardiac evalution Right inuinal hernia Syncope s/p CARL Psych disorder BPH -The patient with fixed inferior defect by cardiolyte and may proceed to surgery as outpatient with low cardiac risk -No heart block with sinus beverly -Normal EF by echocardiogram Consultation Date/Type/Reason Admit Date/Time Aug 27, 2018 at 14:44 Initial Consult Date Type of Consult Cardiology Date/Time of Note DATE: 08/30/18 TIME: 12:45 24 HR Interval Summary Free Text/Dictation The patient with no change Exam/Review of Systems Vital Signs Vitals Vital Signs Date Temp Pulse Resp B/P (MAP) Pulse Ox O2 O2 Flow FiO2 Time Delivery Rate 08/30/18 57 12:13 08/30/18 98.8 16 132/66 98 11:36 (88) 08/27/18 Nasal 2.0 16:30 Cannula Intake and Output 08/29/18 08/29/18 08/30/18 1515:00 23:00 07:00 IntakeIntake Total 400 ml 850 ml 750 ml OutputOutput Total 3 ml 1200 ml 950 ml BalanceBalance 397 ml -350 ml -200 ml Labs Result Diagram: 08/29/18 0549 08/29/18 0549 Results 24hrs Laboratory Tests Test 08/29/18 17:26 08/29/18 20:58 08/30/18 08:07 Bedside Glucose 121 87 91 DOROTA HARRIS MD Aug 30, 2018 12:46
--- NOTE | 2018-08-30 15:00 | DS ---
Date/Time of Note Date/Time of Note DATE: 08/30/18 TIME: 14:57 Discharge Summary Admission/Discharge Info Admit Date/Time Aug 27, 2018 at 14:44 Discharge Date/Time Aug 30, 2018 Discharge Diagnosis Vasovagal syncope Patient Condition: Fair Consults Cardiology Procedures Cardiolyte stress test Hx of Present Illness Patient is a 67-year-old male with a history of BPH, psychiatric disorder as well as history of intermittent syncopal episodes. Patient is a poor historian and does not recall any history of cardiac disorder. Patient presents with complaint of shortness of breath as well as syncopal episode earlier today. In the ER patient did desaturate at room air to 84%, CTA in the ER was negative as well as CT head. EKG showed sinus rhythm the patient denied any chest pain. Patient has no other complaints this time. Hospital Course The patient had a head CT which showed no intracranial bleed. He was admitted to telemetry, where there were no events on 24 hours of monitoring. Of note, the patient complained of chest pain of various qualities including pressure-like with exertion. Because he was scheduled for hernia surgery soon, I decided to pursue stress test prior to discharge. This was negative for ischemia. Troponin was negative as well. The patient did continue to have fatigue and whole-body aching after admission. This is likely related to a viral infection; he didn't get a flu shot this year. He will be discharged to see his primary care doctor in clinic. Home Meds Reported Medications Risperidone* (Risperidone*) 1 Mg Tablet, 1 MG PO QHS, TAB MAY TAKE AN ADDITIONAL .5 TAB IF IRRITABLE 08/27/18 Tamsulosin Hcl* (Flomax*) 0.4 Mg Cap.er.24h, 0.4 MG PO DAILY, CAP 08/27/18 Ranitidine Hcl* (Ranitidine Hcl*) 300 Mg Tablet, 300 MG PO HS, #30 TAB 08/27/18 Omeprazole* (Omeprazole*) 40 Mg Capsule.dr, 40 MG PO DAILY, #30 CAP 08/27/18 Loratadine* (Claritin*) 10 Mg Tablet, 10 MG PO DAILY, TAB 08/27/18 Simvastatin* (Zocor*) 20 Mg Tablet, 20 MG PO QHS, #30 TAB 08/27/18 Follow-up Plan 1. Avoid strenuous activity until you feel ready. 2. Take all medications as prescribed. 3. See your primary care doctor in 1-2 weeks. 4. Return to the emergency room if you develop pressure-like chest pain with activity that does not stop with rest. Primary Care Provider Not On Staff Doctor Time spent on discharge: > 30 minutes Pending Labs Laboratory Tests Test 08/29/18 17:26 08/29/18 20:58 08/30/18 08:07 08/30/18 12:45 Bedside 121 87 91 100 Glucose mg/dL (70-220) mg/dL (70-220) mg/dL (70-220) mg/dL (70-220) DIDI GIL MD Aug 30, 2018 15:00
--- NOTE | 2018-08-30 18:50 | NUR ---
DISCHARGE NOTES PATIENT WAS DISCHARGED TO HOME. IN STABLE CONDITION. INSTRUCTED THE PATIENT TO CALL 911 OR GO TO THE NEAREST ER FOR CHEST PAIN OR IF SOB OCCURS. INSTRUCTED TO SEE HIS PRIMARY CARE PHYSICIAN WITHIN A WEEK. NOTIFIED HIS SON NEELIMA AT [phone] AND ASKED IF HE WILL CROSS ENTERPRISE INTEGRATOR HIS DAD AND HIS SON STATED TO GO AHEAD AND DISCHARGE THE PATIENT. HIS SON STATED TO HAVE THE VOLUNTEER BRING THE PATIENT TO THE LOBBY AND HE WILL JUST MEET HIS DAD THERE. PATIENT WAS ACCOMPANIED BY A VOLUNTEER VIA WHEELCHAIR. Addendum: 08/30/18 at 1938 by ANUEL FINNEGAN RN PATIENT WAS WAITING IN THE LOBBY. CALLED UP NEELIMA X 3, LEFT A MESSAGE, NO RESPONSE. CALLED UP SAME NUMBER [phone], PHAN WALTER- DAUGHTER OF NATALIE ANSWERED THE PHONE. STEP DAUGHTER STATED WILL CROSS ENTERPRISE INTEGRATOR THE PATIENT.
--- NOTE | 2018-08-31 08:07 | RADRPT ---
Echocardiogram Report Patient Name: NATALIE GIL L Gender: Male Date: 1950 Study Date: 28-Aug-2018 [employer] Technical Officer: Sandoval Conrad [facility] Physician: LISA KOROMA Quality: Technically Difficult Study Procedures: Transthoracic echocardiogram with complete 2D, M-Mode, and doppler examination. Indications: Syncope. 2D/M Mode Doppler Measurement Value Normal Ranges Measurement Value Normal Ranges LVIDd 2D 4.5 3.5 - 5.6 cm AV Peak Nelson 1.6 m/sec LVIDs 2D 2.8 2.1 - 4.1 cm AV Peak PG 10.0 mmHg FS 2D 39.0 % LVOT Peak Nelson 0.9 m/sec LVPWd 2D 0.9 0.6 - 1.1 cm LVOT Peak PG 3.0 mmHg IVSd 2D 1.1 0.6 - 1.1 cm MV E Peak Nelson 0.7 m/sec IVS/LVPW 2D 1.2 MV A Peak Nelson 0.9 m/sec AoR Diam 2D 3.1 2.0 - 3.7 cm MV E/A 0.9 LA/Ao 2D 1 0 - 1 MV Decel Time 271 msec EDV 2D 91.7 cm3 MV E/A 0.9 ESV 2D 20.8 cm3 TR Peak Nelson 2.2 m/sec LA Dimen 2D 3.1 2.3 - 4.0 cm TR Peak PG 20.0 mmHg RVSP 28.0 mmHg RA Pressure 8.0 Findings Left Ventricle: Normal left ventricular systolic function. Normal left ventricular cavity size. Mild concentric left ventricular hypertrophy. Ejection fraction is visually estimated at 65 %. Tissue Doppler/Mitral Doppler indices are consistent with impaired relaxation (Stage I diastolic dysfunction). Right Ventricle: Normal right ventricular size. Normal right ventricular systolic function. Left Atrium: The left atrium is normal in size. Right Atrium: The right atrium is normal in size. Mitral Valve: Normal appearance and function of the mitral valve with trace physiologic regurgitation. Aortic Valve: No significant aortic stenosis or insufficiency. Aortic cusps appear mildly calcified. Tricuspid Valve: Normal appearance of the tricuspid valve. Estimated peak PA systolic pressure 28 mmHg. There is trace tricuspid regurgitation. Pulmonic Valve: Normal pulmonic valve appearance. Pericardium: Normal pericardium with no significant pericardial effusion. Aorta: Normal aortic root. IVC: Dilated IVC with respiratory collapse consistent with elevated right atrial pressure. Conclusions Normal left ventricular systolic function. Normal left ventricular cavity size. Mild concentric left ventricular hypertrophy. Ejection fraction is visually estimated at 65 %. Tissue Doppler/Mitral Doppler indices are consistent with impaired relaxation (Stage I diastolic dysfunction). No significant aortic stenosis or insufficiency. Aortic cusps appear mildly calcified. Normal appearance and function of the mitral valve with trace physiologic regurgitation. Normal appearance of the tricuspid valve. Estimated peak PA systolic pressure 28 mmHg. There is trace tricuspid regurgitation. Normal pulmonic valve appearance. Normal pericardium with no significant pericardial effusion. Electronically Signed By: Sammie Segura 31-Aug-2018 08:06:40 -0800 Patient Name: NATALIE GIL L Study Date: 28-Aug-[id number]
== END 2018-08-30 18:51 | disposition home or self-care (01) | DRG 312 ==
LOC: E/R 09:30 → TEL 14:44 → EDBEDREQ 15:21 → EDBEDREQSVC 15:21
PROVIDERS: ADMIT Internal Medicine; ATTEND Internal Medicine
DX: R55 Syncope and collapse (principal); N17.9 Acute kidney failure, unspecified; F20.9 Schizophrenia, unspecified; E86.0 Dehydration; I20.9 Angina pectoris, unspecified; N40.0 Benign prostatic hyperplasia without lower urinary tract symptoms; Z87.891 Personal history of nicotine dependence; Z79.4 Long term (current) use of insulin
CPT/HCPCS: 36415; 70450; 71045; 71275; 78452; 80048; 80053; 82550; 82553; 82962; 83036; 83735; 84100; 84436; 84479; 84484; 85025; 85610; 93005; 93017; 93306; 93880; 96374; 97116; 97161; 97530; A9500; A9505; J1815; J1885; J2270; J2785; J7030; Q9967